=== PATIENT | male | born 1970 | race Caucasian/White ===

== ENCOUNTER → 2016-09-01 10:49 | Outpatient (CLI) | payer BC ==
[2016-04-24 05:56] VITALS: BMI 23.4
[~2016-09-01 10:49] MED LIST: MIRALAX17 GM PO; NORCO 7.5/325 T1 TA1 PO; NORVASC5 MG PO; REQUIP0.5 MG PO
== END | disposition home or self-care (01) ==
LOC: D.US 10:49
DX: R59.0 Localized enlarged lymph nodes (principal)